=== PATIENT | male | born 1950 | race Caucasian/White ===

== ENCOUNTER 2017-06-22 08:56 | Day surgery (SDC) | payer OTHER ==
[2017-06-16 14:30] VITALS: BMI 27.3
[2017-06-22] MEDS ORDERED: PROPOFOL 20 ML ONE ×3 (09:29→11:11)
[2017-06-22 12:06] VITALS: TEMP 97.6
[2017-06-22 12:13] VITALS: BP 98/48; PULSE 62
--- NOTE | 2017-06-26 19:24 | PATH ---
Surgical Pathology Report Patient Name: OTTO HOOK [facility]. Rec. #: [id number] /Age/Gender: 1950 (Age: 67) / M Account: [id number] Location: [facility]-ENDOSCOPY Taken: 06/22/2017 Received: 06/22/2017 Reported: 06/26/2017 Physicians: Virginia Castillo M.D. Specimen(s) Received A: DESCENDING COLON POLYP B: BIOPSY JUNCTION SIGMOID AND RECTUM POLYP C: RECTAL POLYP Clinical History History of polyps Postoperative diagnosis: Diverticulosis, polyps, hemorrhoids Final Diagnosis A. DESCENDING COLON, POLYP, POLYPECTOMY: HYPERPLASTIC POLYP. B. JUNCTION SIGMOID AND RECTUM POLYP, POLYPECTOMY: HYPERPLASTIC POLYP. C. RECTAL POLYPS, POLYPECTOMY: HYPERPLASTIC POLYPS. Electronically Signed Vi Bolton M.D. Gross Description A. Received in formalin, labeled "polyp descending colon" is a barnes, irregular portion of soft tissue measuring 0.4 cm. in greatest dimension. The specimen is submitted in toto in one cassette. B. Received in formalin, labeled "biopsy junction sigmoid and rectum polyp" are 2 barnes, irregular portions of soft tissue measuring 0.1 and 0.4 cm. in greatest dimension. The specimens are submitted in toto in one cassette. C. Received in formalin, labeled "biopsy rectal polyps" are 2 barnes, irregular portions of soft tissue averaging 0.2 cm. in greatest dimension. The specimens are submitted in toto in one cassette. 06/23/2017 saudi06/23/2017
== END 2017-06-22 11:55 | disposition home or self-care (01) ==
LOC: FASU-ENDO 08:56
PROVIDERS: ATTEND Internal Medicine Gastroenterology
PROC: 0DBN8ZX Excision of Sigmoid Colon, Via Natural or Artificial Opening Endoscopic, Diagnostic (ICD-10-PCS; 2017-06-22)
PROC: 0DBP8ZX Excision of Rectum, Via Natural or Artificial Opening Endoscopic, Diagnostic (ICD-10-PCS; 2017-06-22)
PROC: 0DBM8ZX Excision of Descending Colon, Via Natural or Artificial Opening Endoscopic, Diagnostic (ICD-10-PCS; principal; 2017-06-22 10:56)
DX: Z86.010 Personal history of colon polyps (principal); K63.5 Polyp of colon; K57.30 Diverticulosis of large intestine without perforation or abscess without bleeding; K64.8 Other hemorrhoids
CPT/HCPCS: 88305-TC